=== PATIENT | female | born 1970 | race Caucasian/White ===

== ENCOUNTER 2024-04-15 09:41 | Day surgery (SDC) | payer OTHER ==
[2024-04-11 15:28] VITALS: BMI 24.4
[2024-04-15 12:02] VITALS: TEMP 97.5
[2024-04-15 12:14] VITALS: BP 124/45; PULSE 74; RESP 15
== END 2024-04-15 11:24 | disposition home or self-care (01) ==
LOC: FASU-ENDO 09:41
PROVIDERS: ATTEND Internal Medicine Gastroenterology
PROC: 0DJD8ZZ Inspection of Lower Intestinal Tract, Via Natural or Artificial Opening Endoscopic (ICD-10-PCS; principal; 2024-04-15 10:33)
DX: Z12.11 Encounter for screening for malignant neoplasm of colon (principal)
CPT/HCPCS: 81025